=== PATIENT | female | born 1960 | race Hispanic/Latino ===

== ENCOUNTER 2018-01-17 11:55 | Observation (INO) | payer OTHER ==
--- NOTE | 2018-01-17 12:50 | ED PDOC ---
HPI: SOB/CHF/COPD Time Seen by Provider: 01/17/18 12:19 Chief Complaint (Nursing): Cough, Cold, Congestion Chief Complaint (Provider): SOB, right sided chest pain and hemoptysis History Per: Patient History/Exam Limitations: no limitations Onset/Duration Of Symptoms: Days (x2 weeks) Current Symptoms Are (Timing): Still Present Associated Symptoms: Chest Pain (right sided), Bloody Cough. denies: Fever, Chills Additional Complaint(s): Stacy Mendoza is a 57 year old female, with a past medical history of asthma, who was referred by PMD for evaluation of a x2 week history of shortness of breath, right sided chest pain and hemoptysis. Patient states she recently traveled to [place] by car within the past x2 weeks. Patient denies any fever, chills or other medical complaints. PMD: Celio Webber Past Medical History Reviewed: Historical Data, Nursing Documentation, Vital Signs Vital Signs: Last Vital Signs Temp 98.4 F 01/17/18 12:11 Pulse 65 01/17/18 12:11 Resp 16 01/17/18 12:11 BP 124/71 01/17/18 12:11 Pulse Ox 97 01/17/18 12:53 - Medical History PMH: Asthma - Surgical History Surgical History: No Surg Hx - Family History Family History: States: Unknown Family Hx - Social History Alcohol: None Drugs: Denies - Allergies Allergies/Adverse Reactions: Allergies Allergy/AdvReac Type Severity Reaction Status Date / Time codeine Allergy VOMITING Verified 01/17/18 12:10 Review of Systems ROS Statement: Except As Marked, All Systems Reviewed And Found Negative Constitutional: Negative for: Fever, Chills Cardiovascular: Positive for: Chest Pain (right sided) Respiratory: Positive for: Shortness of Breath, Hemoptysis Physical Exam - Reviewed Nursing Documentation Reviewed: Yes Vital Signs Reviewed: Yes - Physical Exam Appears: Positive for: Non-toxic Head Exam: Positive for: ATRAUMATIC, NORMAL INSPECTION, NORMOCEPHALIC Skin: Positive for: Normal Color, Warm, Dry Eye Exam: Positive for: Normal appearance, EOMI, PERRL ENT: Positive for: Normal ENT Inspection Neck: Positive for: Painless ROM Cardiovascular/Chest: Positive for: Regular Rate, Rhythm. Negative for: Murmur Respiratory: Positive for: Rhonchi (scattered). Negative for: Wheezing, Respiratory Distress Gastrointestinal/Abdominal: Positive for: Normal Exam, Soft. Negative for: Tenderness Back: Positive for: Normal Inspection Extremity: Positive for: Normal ROM (upper and lower extremities). Negative for : Calf Tenderness, Deformity, Swelling (calf) Neurologic/Psych: Positive for: Alert, Oriented - Laboratory Results Result Diagrams: 01/17/18 13:00 01/17/18 13:00 - ECG O2 Sat by Pulse Oximetry: 97 (RA) Pulse Ox Interpretation: Normal Medical Decision Making Medical Decision Making: Time: 12:19 Initial Plan: --Angio chest PE protocol [CT] --EKG --CMP --CBC w/ differential --D Dimer --PT [COAG] --Reevaluation ----- Scribe Attestation: Documented by Ok Caro, acting as a scribe for Abdullahi Zuniga MD. Provider Scribe Attestation: All medical record entries made by the Scribe were at my direction and personally dictated by me. I have reviewed the chart and agree that the record accurately reflects my personal performance of the history, physical exam, medical decision making, and the department course for this patient. I have also personally directed, reviewed, and agree with the discharge instructions and disposition. Disposition - Clinical Impression Clinical Impression: Exacerbation of asthma - Patient ED Disposition Is Patient to be Admitted: Yes - Disposition Disposition Time: 15:12 Condition: FAIR Forms: Niko Niko (Pakistani) - Pt Status Changed To: Hospital Disposition Of: Observation - POA Present On Arrival: None
[2018-01-17 13:10] LABS: BASO % 0.5 % (0.0-2.0); EOS # 0.2 K/uL (0.0-0.7); EOS % 2.1 % (0.0-4.0); HEMOGLOBIN 13.6 g/dL (12.0-16.0); LYMPH # 3.1 K/uL (1.0-4.3); LYMPH % 44.2 % (20.0-40.0); MEAN CELL VOLUME 87.4 fl (81.0-99.0); MEAN CORPUSCULAR HEMOGLOBIN 29.6 pg (27.0-31.0); MEAN CORPUSCULAR HGB CONC 33.9 g/dL (33.0-37.0); MEAN PLATELET VOLUME 8.8 fl (7.2-11.7); MONO # 0.6 K/uL (0.0-0.8); MONO % 7.9 % (0.0-10.0); NEUT # 3.2 K/uL (1.8-7.0); NEUT % 45.3 % (50.0-75.0); RBC 4.58 Mil/uL (3.80-5.20); RED CELL DISTRIBUTION WIDTH 13.9 % (11.5-14.5); WHITE BLOOD COUNT 7.1 K/uL (4.8-10.8)
[2018-01-17 13:14] LABS: PROTHROMBIN TIME 11.4 Seconds (9.8-13.1)
[2018-01-17 13:22] LABS: ALB/GLOB RATIO 1.7 (1.0-2.1); ALBUMIN 4.4 g/dL (3.5-5.0); ALT/SGPT 40 U/L (9-52); AST/SGOT 34 U/L (14-36); BLOOD UREA NITROGEN 13 mg/dl (7-17); CALCIUM 9.8 mg/dL (8.4-10.2); GFR AFRICAN-AMERICAN > 60; GFR NON-AFRICAN AMERICAN > 60
[2018-01-17 13:24] LABS: D DIMER < 200 ng/mlDDU (0-230)
[2018-01-17] MEDS ORDERED: Iodixanol 320 MG/ML 100 ML BOTTLE IV ONE (13:28)
[2018-01-17] MEDS ORDERED: Sodium Chloride 0.9% 50 ML IV ONE (13:28)
--- NOTE | 2018-01-17 15:01 | CT ---
Date of service: 01/17/2018 PROCEDURE: CT Chest with contrast (Pulmonary Angiogram) HISTORY: hemoptysis r/o PE COMPARISON: NoneAll all available. TECHNIQUE: Axial computed tomography images were obtained of the chest in the pulmonary arterial phase of enhancement. Coronal and sagittal reformatted images were created and reviewed. Maximum intensity projection (MIP) reconstructed images in the following planes: Axial only. Intravenous contrast dose: 99 cc Visipaque 320. Mean Hounsfield unit values in the main pulmonary artery: 385.15. Radiation dose: Total exam DLP = 214.01 mGy-cm. This CT exam was performed using one or more of the following dose reduction techniques: Automated exposure control, adjustment of the mA and/or kV according to patient size, and/or use of iterative reconstruction technique. FINDINGS: PULMONARY ARTERIES: Unremarkable. No pulmonary embolism. AORTA: No acute findings. No thoracic aortic aneurysm. LUNGS: Unremarkable. No nodule, mass or pulmonary consolidation. PLEURAL SPACES: Unremarkable. No effusion or pneumothorax. HEART: Unremarkable. No cardiomegaly. No significant pericardial effusion. LYMPH NODES: No lymphadenopathy. BONES, CHEST WALL: Unremarkable. No fracture or destructive lesion OTHER FINDINGS: Unremarkable. IMPRESSION: Unremarkable CT pulmonary angiogram. No pulmonary embolus.
[2018-01-17] MEDS ORDERED: Azithromycin 500 MG in Sodium Chloride 0.9% 250 ML IVPB STA (15:10)
[2018-01-17] MEDS ORDERED: Albuterol-Ipratrop 3 mg / 0.5 (3 ml) UD IH STA (15:10)
[2018-01-17] MEDS ORDERED: Albuterol-Ipratrop 3 mg / 0.5 (3 ml) UD ONE (15:46)
[2018-01-17] MEDS ORDERED: Azithromycin 500 MG IV IVPB ONE (15:46)
--- NOTE | 2018-01-17 17:02 | CARD ---
APPROVED REPORT Date of service: 01/17/2018 <Conclusion> Normal sinus rhythm Possible Left atrial enlargement Borderline ECG
[2018-01-17] MEDS ORDERED: Albuterol-Ipratrop 3 mg / 0.5 (3 ml) UD INH PRN (17:18)
[2018-01-17] MEDS ORDERED: Promethazine DM 12.5 mg-30 mg/10 ml Syrup PO PRN (17:18)
[2018-01-17] MEDS ORDERED: Pneumococcal 23-Valent Vaccine IM ONE (18:07)
[2018-01-17 18:09] LABS: ABG ALLEN TEST YES; ARTERIAL BLOOD GAS HCO3 25.5 mmol/L (21-28); ARTERIAL BLOOD GAS HEMOGLOBIN 13.3 g/dL (11.7-17.4); ARTERIAL BLOOD GAS O2 CAPACITY 18.3 mL/dL (16-24); ARTERIAL BLOOD GAS O2 CONTENT 18.3 ML/dL (15-23); ARTERIAL BLOOD GAS O2 SAT 99.9 % (95-98); ARTERIAL BLOOD GAS PCO2 40 mm/Hg (35-45); ARTERIAL BLOOD GAS PH 7.41 (7.35-7.45); ARTERIAL BLOOD GAS PO2 118 mm/Hg (80-100); ARTERIAL BLOOD GAS TCO2 26.6 mmol/L (22-28)
[2018-01-17] MEDS ORDERED: AZELASTINE HCL NAS SCH (21:00)
[2018-01-17] MEDS: Fluticasone-Salmeterol 250-50mcg Diskus IH SCH (21:54)
[2018-01-17] MEDS ORDERED: methylPREDNISolone 60 MG in Sodium Chloride 0.9% 50 ML IVPB SCH (22:00)
[2018-01-17] MEDS ORDERED: Olopatadine 0.1% Opht SOLN OU SCH (22:00)
[2018-01-18 00:20] VITALS: TEMP 97.7
[2018-01-18 07:51] VITALS: BP 102/59; RESP 19; O2SAT 96
[2018-01-18] MEDS: Fluticasone-Salmeterol 250-50mcg Diskus IH SCH (08:25)
[2018-01-18] MEDS ORDERED: Pneumococcal 23-Valent Vaccine IM ONE (09:00)
[2018-01-18] MEDS ORDERED: levoFLOXacin 500 mg in D5W 500 MG/100 ML BAG IVPB SCH (09:00)
[2018-01-18 10:13] VITALS: PULSE 72
--- NOTE | 2018-01-18 11:35 | CP.PCM.HP ---
History of Present Illness - History of Present Illness History of Present Illness: 57 YR OLD FEMALE ADMITTED BECAUSE OF SHORTNESS OF BREATH AND COUGHING UP BLOOD X SEVERAL WEEKS.SHE HAS A HISTORY OF ASTHMA AND HAS FAILED OUT PATIENT COMPREHENSIVE THERAPY. 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 Present on Admission - Present on Admission Any Indicators Present on Admission: Yes Past Patient History - Past Medical History & Family History Past Medical History?: Yes - Past Social History Smoking Status: Never Smoked - CARDIAC Hx Cardiac Disorders: No - PULMONARY Hx Respiratory Disorders: Yes Hx Asthma: Yes - NEUROLOGICAL Hx Neurological Disorder: No - HEENT Hx HEENT Problems: No - RENAL Hx Chronic Kidney Disease: No - ENDOCRINE/METABOLIC Hx Endocrine Disorders: No - HEMATOLOGICAL/ONCOLOGICAL Hx Blood Disorders: No Hx AIDS: No Hx Human Immunodeficiency Virus (HIV): No - INTEGUMENTARY Hx Dermatological Problems: No - MUSCULOSKELETAL/RHEUMATOLOGICAL Hx Falls: No - GASTROINTESTINAL Hx Gastrointestinal Disorders: No - GENITOURINARY/GYNECOLOGICAL Hx Genitourinary Disorders: No - PSYCHIATRIC Hx Substance Use: No - SURGICAL HISTORY Hx Surgeries: Yes Hx Cholecystectomy: Yes (1989) Hx Hysterectomy: Yes (Partial Hysterectomy 2001) Hx Tonsillectomy: Yes (1976) - ANESTHESIA Hx Anesthesia: Yes Hx Anesthesia Reactions: No Meds Allergies/Adverse Reactions: Allergies Allergy/AdvReac Type Severity Reaction Status Date / Time codeine Allergy VOMITING Verified 01/17/18 12:10 Physical Exam - Constitutional Appears: Well, No Acute Distress - Head Exam Head Exam: ATRAUMATIC, NORMAL INSPECTION, NORMOCEPHALIC - Eye Exam Eye Exam: EOMI, Normal appearance, PERRL Pupil Exam: NORMAL ACCOMODATION, PERRL - ENT Exam ENT Exam: Mucous Membranes Moist, Normal Exam - Neck Exam Neck exam: Positive for: Normal Inspection - Respiratory Exam Respiratory Exam: Wheezes, NORMAL BREATHING PATTERN - Cardiovascular Exam Cardiovascular Exam: REGULAR RHYTHM - GI/Abdominal Exam GI & Abdominal Exam: Normal Bowel Sounds, Soft. absent: Tenderness - Rectal Exam Rectal Exam: NORMAL INSPECTION - Extremities Exam Extremities exam: Positive for: normal inspection - Back Exam Back exam: NORMAL INSPECTION - Neurological Exam Neurological exam: Alert, CN II-XII Intact, Normal Gait, Oriented x3, Reflexes Normal - Psychiatric Exam Psychiatric exam: Normal Affect, Normal Mood - Skin Skin Exam: Dry, Intact, Normal Color, Warm Results - Vital Signs Recent Vital Signs: Last Vital Signs Temp 97.7 F 01/18/18 09:00 Pulse 72 01/18/18 09:47 Resp 19 01/18/18 09:00 BP 102/59 L 01/18/18 09:00 Pulse Ox 96 01/18/18 09:00 - Labs Result Diagrams: 01/17/18 13:00 01/17/18 13:00 Labs: Laboratory Results - last 24 hr 01/17/18 01/17/18 01/17/18 13:00 13:00 13:00 WBC 7.1 RBC 4.58 Hgb 13.6 Hct 40.0 MCV 87.4 MCH 29.6 MCHC 33.9 RDW 13.9 Plt Count 224 MPV 8.8 Neut % (Auto) 45.3 L Lymph % (Auto) 44.2 H Yates % (Auto) 7.9 Eos % (Auto) 2.1 Baso % (Auto) 0.5 Neut # (Auto) 3.2 Lymph # (Auto) 3.1 Yates # (Auto) 0.6 Eos # (Auto) 0.2 Baso # (Auto) 0.0 PT 11.4 INR 1.0 D-Dimer, Quantitative < 200 pCO2 pO2 HCO3 ABG pH ABG Total CO2 ABG O2 Saturation ABG O2 Content ABG Base Excess ABG Hemoglobin ABG Carboxyhemoglobin POC ABG HHb (Measured) ABG Methemoglobin ABG O2 Capacity Binu Test A-a O2 Difference Hgb O2 Saturation Vent Mode FiO2 Sodium 141 Potassium 3.9 Chloride 106 Carbon Dioxide 26 Anion Gap 13 BUN 13 Creatinine 0.6 L Est GFR ( Amer) > 60 Est GFR (Non-Af Amer) > 60 Random Glucose 92 Calcium 9.8 Total Bilirubin 0.6 AST 34 ALT 40 Alkaline Phosphatase 85 Total Protein 7.1 Albumin 4.4 Globulin 2.7 Albumin/Globulin Ratio 1.7 01/17/18 18:01 WBC RBC Hgb Hct MCV MCH MCHC RDW Plt Count MPV Neut % (Auto) Lymph % (Auto) Yates % (Auto) Eos % (Auto) Baso % (Auto) Neut # (Auto) Lymph # (Auto) Yates # (Auto) Eos # (Auto) Baso # (Auto) PT INR D-Dimer, Quantitative pCO2 40 pO2 118 H HCO3 25.5 ABG pH 7.41 ABG Total CO2 26.6 ABG O2 Saturation 99.9 H ABG O2 Content 18.3 ABG Base Excess 0.7 ABG Hemoglobin 13.3 ABG Carboxyhemoglobin 1.6 H POC ABG HHb (Measured) 0.1 ABG Methemoglobin 1.3 ABG O2 Capacity 18.3 Binu Test Yes A-a O2 Difference 60.0 Hgb O2 Saturation 96.9 Vent Mode 3lnc FiO2 32.0 Sodium Potassium Chloride Carbon Dioxide Anion Gap BUN Creatinine Est GFR ( Amer) Est GFR (Non-Af Amer) Random Glucose Calcium Total Bilirubin AST ALT Alkaline Phosphatase Total Protein Albumin Globulin Albumin/Globulin Ratio Assessment & Plan - Assessment and Plan (Free Text) Assessment: ACUTE ASTHMA OUT PATIENT TREATMENT FAILURE Plan: IV STEROIDS AEROSOLIZED BRONCHODILATORS AND OXYGEN BRONCHOSCOPIC EVALUATION OF AIRWAYS IF HEMOPTYSIS PERSISTS - Date & Time Date: 01/18/18 Time: 11:38
--- NOTE | 2018-01-18 11:40 | CP.PCM.DIS ---
Provider - Provider Date of Admission: 01/17/18 15:10 Attending physician: Chase Munguia MD Time Spent in preparation of Discharge (in minutes): 35 Diagnosis - Discharge Diagnosis (1) Hemoptysis Status: Acute (2) Exacerbation of asthma Status: Acute Hospital Course - Lab Results Lab Results: Most Recent Lab Values WBC 7.1 K/uL (4.8-10.8) 01/17/18 13:00 RBC 4.58 Mil/uL (3.80-5.20) 01/17/18 13:00 Hgb 13.6 g/dL (12.0-16.0) 01/17/18 13:00 Hct 40.0 % (34.0-47.0) 01/17/18 13:00 MCV 87.4 fl (81.0-99.0) 01/17/18 13:00 MCH 29.6 pg (27.0-31.0) 01/17/18 13:00 MCHC 33.9 g/dL (33.0-37.0) 01/17/18 13:00 RDW 13.9 % (11.5-14.5) 01/17/18 13:00 Plt Count 224 K/uL (130-400) 01/17/18 13:00 MPV 8.8 fl (7.2-11.7) 01/17/18 13:00 Neut % (Auto) 45.3 % (50.0-75.0) L 01/17/18 13:00 Lymph % (Auto) 44.2 % (20.0-40.0) H 01/17/18 13:00 Thomas % (Auto) 7.9 % (0.0-10.0) 01/17/18 13:00 Eos % (Auto) 2.1 % (0.0-4.0) 01/17/18 13:00 Baso % (Auto) 0.5 % (0.0-2.0) 01/17/18 13:00 Neut # (Auto) 3.2 K/uL (1.8-7.0) 01/17/18 13:00 Lymph # (Auto) 3.1 K/uL (1.0-4.3) 01/17/18 13:00 Thomas # (Auto) 0.6 K/uL (0.0-0.8) 01/17/18 13:00 Eos # (Auto) 0.2 K/uL (0.0-0.7) 01/17/18 13:00 Baso # (Auto) 0.0 K/uL (0.0-0.2) 01/17/18 13:00 PT 11.4 Seconds (9.8-13.1) 01/17/18 13:00 INR 1.0 01/17/18 13:00 D-Dimer, Quantitative < 200 ng/mlDDU (0-230) 01/17/18 13:00 pCO2 40 mm/Hg (35-45) 01/17/18 18: pO2 118 mm/Hg (80-100) H 01/17/18 18: HCO3 25.5 mmol/L (21-28) 01/17/18 18: ABG pH 7.41 (7.35-7.45) 01/17/18 18: ABG Total CO2 26.6 mmol/L (22-28) 01/17/18 18: ABG O2 Saturation 99.9 % (95-98) H 01/17/18 18: ABG O2 Content 18.3 ML/dL (15-23) 01/17/18 18: ABG Base Excess 0.7 mmol/L (-2.0-3.0) 01/17/18 18: ABG Hemoglobin 13.3 g/dL (11.7-17.4) 01/17/18 18: ABG Carboxyhemoglobin 1.6 % (0.5-1.5) H 01/17/18 18: POC ABG HHb (Measured) 0.1 % (0.0-5.0) 01/17/18 18: ABG Methemoglobin 1.3 % (0.0-3.0) 01/17/18 18: ABG O2 Capacity 18.3 mL/dL (16-24) 01/17/18 18: Binu Test Yes 01/17/18 18: A-a O2 Difference 60.0 mm/Hg 01/17/18 18: Hgb O2 Saturation 96.9 % (95.0-98.0) 01/17/18 18: Vent Mode 3lnc 01/17/18 18:01 FiO2 32.0 % 01/17/18 18:01 Sodium 141 mmol/l (132-148) 01/17/18 13:00 Potassium 3.9 MMOL/L (3.6-5.0) 01/17/18 13:00 Chloride 106 mmol/L (98-107) 01/17/18 13:00 Carbon Dioxide 26 mmol/L (22-30) 01/17/18 13:00 Anion Gap 13 (10-20) 01/17/18 13:00 BUN 13 mg/dl (7-17) 01/17/18 13:00 Creatinine 0.6 mg/dl (0.7-1.2) L 01/17/18 13:00 Est GFR ( Amer) > 60 01/17/18 13:00 Est GFR (Non-Af Amer) > 60 01/17/18 13:00 Random Glucose 92 mg/dL (65-105) 01/17/18 13:00 Calcium 9.8 mg/dL (8.4-10.2) 01/17/18 13:00 Total Bilirubin 0.6 mg/dl (0.2-1.3) 01/17/18 13:00 AST 34 U/L (14-36) 01/17/18 13:00 ALT 40 U/L (9-52) 01/17/18 13:00 Alkaline Phosphatase 85 U/L (38-126) 01/17/18 13:00 Total Protein 7.1 G/DL (6.3-8.2) 01/17/18 13:00 Albumin 4.4 g/dL (3.5-5.0) 01/17/18 13:00 Globulin 2.7 gm/dL (2.2-3.9) 01/17/18 13:00 Albumin/Globulin Ratio 1.7 (1.0-2.1) 01/17/18 13:00 - Hospital Course Hospital Course: SOB AND HEMOPTYSIS RESOLVED WITH THERAPY ALL WORKUP NON-REVEALING Discharge Exam - Head Exam Head Exam: ATRAUMATIC, NORMAL INSPECTION, NORMOCEPHALIC - Eye Exam Eye Exam: EOMI, Normal appearance, PERRL Pupil Exam: NORMAL ACCOMODATION, PERRL - GI/Abdominal Exam GI & Abdominal Exam: Normal Bowel Sounds - Rectal Exam Rectal Exam: NORMAL INSPECTION - Neurological Exam Neurological exam: Alert, CN II-XII Intact, Normal Gait, Oriented x3, Reflexes Normal - Psychiatric Exam Psychiatric exam: Normal Affect, Normal Mood - Skin Skin Exam: Dry, Intact, Normal Color, Warm Discharge Plan - Follow Up Plan Condition: FAIR Disposition: HOME/ ROUTINE Patient education suggested?: Yes Additional Instructions: D/C HOME TODAY ON LEVAQUIN,PHENERGAN AND PREDNISONE FOLLOW UP WITH DR MUNGUAI
== END 2018-01-18 12:25 | disposition home or self-care (01) ==
LOC: EDBD 11:55 → H.ER 11:55 → INTOOBSV 15:10 → H.ERHOLD 15:10 → H.MEDSURG1 16:41
PROVIDERS: ADMIT Internal Medicine Pulmonary Disease; ATTEND Internal Medicine Pulmonary Disease
DX: R04.2 Hemoptysis (principal); J45.901 Unspecified asthma with (acute) exacerbation; Z88.6 Allergy status to analgesic agent; Z23 Encounter for immunization; Z87.891 Personal history of nicotine dependence
CPT/HCPCS: 36600; 71275; 80053; 82803; 85025; 85378; 85610; 87040; 87070; 87205; 90471; 90732; 93005; 94640; 96374; 99283; G0378; J0456; J2930; Q9967